=== PATIENT | female | born 2000 | race Caucasian/White ===

== ENCOUNTER 2022-08-09 21:25 | Emergency (ER) | payer OTHER, BC ==
[2022-08-10] MEDS ORDERED: diphenhydrAMINE 50 MG/ML VIAL ONE (00:47)
[2022-08-10] MEDS ORDERED: Metoclopramide HCl 10 MG/2 ML VIAL ONE (00:47)
[2022-08-10] MEDS ORDERED: SUMAtriptan Succinate 6 MG/0.5 ML VIAL ONE (00:47)
[2022-08-10] MEDS ORDERED: Ketorolac Tromethamine 30 MG/ML VIAL ONE (00:48)
== END 2022-08-10 01:48 | disposition home or self-care (01) ==
LOC: CSHERS 21:25
DX: G43.909 Migraine, unspecified, not intractable, without status migrainosus (principal)
CPT/HCPCS: 70450; 96372; 96374; 96375; J1200; J1885; J2765; J3030